=== PATIENT | female | born 1990 | race Hispanic/Latino ===

== ENCOUNTER 2021-07-21 10:04 | Outpatient (CLI) | payer BC ==
[2021-07-21 19:17] LABS: SARS-CoV-2 PCR by NAA Not Detected (NotDetected)
== END 2021-07-21 10:05 | disposition home or self-care (01) ==
LOC: CSHLAB 10:04
PROVIDERS: ATTEND Obstetrics & Gynecology
DX: Z20.822 Contact with and (suspected) exposure to COVID-19 (principal)
CPT/HCPCS: U0003; U0005

== ENCOUNTER 2021-07-24 19:41 | Inpatient (IN) | payer BC ==
[~2021-07-24 19:41] MED LIST: Bupivacaine 0.25% HCL 30 ML VIAL ONE; ePHEDrine Sulfate 50 MG/10 ML VIAL ONE
[2021-07-24 20:36] VITALS: BMI 41.3
[2021-07-24] MEDS: Lactated Ringer's 1,000 ML IV SCH (21:40)
[2021-07-24] MEDS ORDERED: Ibuprofen 800 MG TAB PO PRN (22:25)
[2021-07-24] MEDS ORDERED: Misoprostol 200 MCG TAB PR PRN (22:25)
[2021-07-24] MEDS ORDERED: Ondansetron PF 4 MG/2 ML Vial IVP PRN (22:25)
[2021-07-24] MEDS ORDERED: Docusate 100 MG CAP PO PRN (22:25)
[2021-07-24] MEDS ORDERED: hydrALAZINE 20 MG/ML VIAL SLOW IVP PRN (22:25)
[2021-07-24] MEDS ORDERED: HYDROcodone/Acetaminophen 5/325 mg Tablet PO PRN ×2 (22:25)
[2021-07-24] MEDS ORDERED: Zolpidem Tartrate 5 MG TAB PO PRN (22:25)
[2021-07-24] MEDS ORDERED: Lidocaine 1% (PF) 30 ML VIAL SC PRN (22:25)
[2021-07-24] MEDS ORDERED: Promethazine HCl 25 MG/ML VIAL IM PRN (22:25)
[2021-07-24] MEDS ORDERED: Acetaminophen 500 MG TAB PO PRN (22:25)
[2021-07-24] MEDS ORDERED: Diphenoxylate HCl/Atropine Tablet PO PRN ×2 (22:25)
[2021-07-24] MEDS ORDERED: NS w/ Oxytocin 30 units 500 ML IV SCH ×2 (22:30)
[2021-07-24] MEDS ORDERED: Misoprostol 100 MCG TAB ONE (22:34)
[2021-07-24] MEDS: Misoprostol 100 MCG TAB VAG SCH (22:40)
[2021-07-24 23:17] LABS: Hemoglobin 11.2 g/dL (12.0-15.5); Mean Corpuscular HGB CONC 31.9 g/dL (32.0-36.0); Mean Corpuscular Hemoglobin 26.7 pg (27.0-33.0); Mean Corpuscular Volume 83.8 fl (81.6-98.3); Mean Platelet Volume 12.4 fl (7.4-10.4); Platelet Count 193 10x3/uL (150-450); RBC Distribution Width 14.8 % (11.5-14.5); Red Blood Cell (RBC) Count 4.19 10x6/uL (3.90-5.03); White Blood Cell (WBC) Count 8.2 10x3/uL (3.5-10.5)
[2021-07-24 23:42] LABS: Syphilis Antibody Nonreactive (Nonreactive); Syphilis Antibody Index 0.04 S/CO (<1.00 Non-Reactive)
[2021-07-24 23:43] LABS: HIV (1/2) Antibody/Antigen Non-Reactive (NonReactive); HIV 1/2 INDEX 0.07 S/CO (<1.00); Hep B Surf Ag Non-Reactive S/CO (NonReactive)
[2021-07-25 00:29] LABS: HBSAg Index 0.18 S/CO (0-0.99)
[2021-07-25] MEDS: Lactated Ringer's 1,000 ML IV SCH ×3 (07:29→18:58)
[2021-07-25] MEDS: Misoprostol 100 MCG TAB VAG SCH ×3 (08:10→18:59)
[2021-07-25] MEDS: Butorphanol Tartrate 1 MG/ML VIAL SLOW IVP PRN ×3 (11:14→15:14)
[2021-07-25] MEDS ORDERED: Fentanyl 2 mcg/Bup 0.1% Cadd 100 ML ONE (14:23)
[2021-07-25] MEDS ORDERED: Fentanyl 100 MCG/2 ML VIAL ONE (15:28)
[2021-07-25] MEDS ORDERED: Promethazine HCl 25 MG/ML VIAL IM PRN (17:06)
[2021-07-25] MEDS ORDERED: Lactated Ringer's 500 ML IV PRN (17:06)
[2021-07-25] MEDS ORDERED: diphenhydrAMINE 50 MG/ML VIAL IVP PRN (17:06)
[2021-07-25] MEDS ORDERED: Acetaminophen 325 MG TAB PO PRN (17:06)
[2021-07-25] MEDS ORDERED: Naloxone HCl 0.4 mg/ml Vial IVP PRN ×2 (17:06)
[2021-07-25] MEDS ORDERED: Ondansetron PF 4 MG/2 ML Vial IVP PRN ×2 (17:06→22:14)
[2021-07-25] MEDS ORDERED: Hydrocerin (Eucerin) Cream 120 gm Jar TOP PRN (17:06)
[2021-07-25] MEDS ORDERED: ePHEDrine Sulfate 50 MG/10 ML VIAL SLOW IVP PRN (17:06)
[2021-07-25] MEDS ORDERED: Fentanyl 2 mcg/Bupivacaine 0.1% Cassette 100 ML EPIDURAL SCH (17:15)
[2021-07-25] MEDS ORDERED: Communication Order-Pharmacy FS SCH (17:15)
[2021-07-25] MEDS ORDERED: diphenhydrAMINE 25 MG CAP PO PRN (22:14)
[2021-07-25] MEDS ORDERED: Bisacodyl 10 MG SUPP PR PRN (22:14)
[2021-07-25] MEDS ORDERED: Misoprostol 200 MCG TAB VAG PRN (22:14)
[2021-07-25] MEDS ORDERED: HYDROcodone/Acetaminophen 5/325 mg Tablet PO PRN ×2 (22:14)
[2021-07-25] MEDS ORDERED: Milk Of Magnesia 30 ML UDCUP PO PRN (22:14)
[2021-07-25] MEDS ORDERED: Preparation H Ointment 28 GM TUBE PR PRN (22:14)
[2021-07-25] MEDS ORDERED: Boostrix 0.5 ML (Tdap) VIAL IM ONE (22:14)
[2021-07-25] MEDS ORDERED: Benzocaine-Menthol 82.5 ML CAN TOP PRN (22:14)
[2021-07-25] MEDS ORDERED: hydrALAZINE 20 MG/ML VIAL SLOW IVP PRN (22:14)
[2021-07-25] MEDS ORDERED: Lanolin Ointment 7 GM TUBE TOP PRN (22:14)
[2021-07-25] MEDS ORDERED: Zolpidem Tartrate 5 MG TAB PO PRN (22:14)
[2021-07-25] MEDS ORDERED: NS w/ Oxytocin 30 units 500 ML IV SCH (22:15)
[2021-07-26] MEDS: Misoprostol 100 MCG TAB VAG SCH (02:25)
[2021-07-26] MEDS: Ibuprofen 800 MG TAB PO SCH ×3 (06:18→21:54)
[2021-07-26 06:50] LABS: Hemoglobin 11.1 g/dL (12.0-15.5); Mean Corpuscular HGB CONC 31.4 g/dL (32.0-36.0); Mean Corpuscular Hemoglobin 26.8 pg (27.0-33.0); Mean Corpuscular Volume 85.5 fl (81.6-98.3); Mean Platelet Volume 12.6 fl (7.4-10.4); Platelet Count 185 10x3/uL (150-450); RBC Distribution Width 14.6 % (11.5-14.5); Red Blood Cell (RBC) Count 4.14 10x6/uL (3.90-5.03); White Blood Cell (WBC) Count 19.3 10x3/uL (3.5-10.5)
[2021-07-26] MEDS: Ferrous Sulfate 325 MG TAB PO SCH ×2 (08:10→17:53)
[2021-07-26] MEDS: Prenatal Vitamin 1 TAB PO SCH (09:08)
[2021-07-26] MEDS: Docusate 100 MG CAP PO SCH ×2 (09:11→21:54)
[2021-07-26 19:30] VITALS: TEMP 97.8
[2021-07-27] MEDS: Ibuprofen 800 MG TAB PO SCH (05:03)
[2021-07-27 08:17] VITALS: BP 106/58
[2021-07-27] MEDS: Ferrous Sulfate 325 MG TAB PO SCH (08:24)
[2021-07-27] MEDS: Docusate 100 MG CAP PO SCH (08:27)
[2021-07-27] MEDS: Prenatal Vitamin 1 TAB PO SCH (08:27)
== END 2021-07-27 12:30 | disposition home or self-care (01) | DRG 807 ==
LOC: CSHLD 19:41 → CSHPP 07-26 00:05
PROVIDERS: ADMIT Obstetrics & Gynecology; ATTEND Obstetrics & Gynecology
PROC: 10E0XZZ Delivery of Products of Conception, External Approach (ICD-10-PCS; principal; 2021-07-25)
DX: O80 Encounter for full-term uncomplicated delivery (principal); Z37.0 Single live birth; Z3A.39 39 weeks gestation of pregnancy
CPT/HCPCS: 36415; 51702; 85027; 86780; 86850; 86900; 86901; 87340; 87389; J0290; J0595; J2590; J7070; J7120; S0020; U0003; U0005